=== PATIENT | female | born 1955 | race Caucasian/White ===

== ENCOUNTER → 2017-09-09 | Outpatient (CLI) | payer SELFPAY ==
--- NOTE | 2017-09-09 12:17 | RAD ---
Indication cough. Bodyaches. Frontal and lateral views of the chest were obtained and are compared to an examination 11/16/2016. The heart, pulmonary vessels and mediastinum appear normal. The lungs are clear. There has not been a significant change compared to the previous exam. IMPRESSION: No acute or focal process. No significant change
== END | disposition home or self-care (01) ==
LOC: DXRADRC 12:00
PROVIDERS: ATTEND Nurse Practitioner Family
DX: R05 Cough (principal); R52 Pain, unspecified
CPT/HCPCS: 71020